=== PATIENT | male | born 1995 | race Caucasian/White ===

== ENCOUNTER 2019-11-27 17:05 | Emergency (ER) | payer OTHER ==
[2019-11-27 17:13] VITALS: BP 143/75
--- NOTE | 2019-11-27 18:00 | ED Physician Documentation ---
History of Present Illness - Stated complaint Stated Complaint: BLOOD IN STOOL - Chief complaint Chief Complaint: General - History obtained from History obtained from: Patient - History of Present Illness Timing: Other (24-year-old gentleman, active duty in the [place]. For the last 10 days has had intermittent bright red blood per rectum only with bowel movements. He has no bleeding without bowel movements. He has been slightly constipated. The blood is on the outside of the stool. He had never had this before.) Review of Systems Constitutional: denies: Fever, Chills Respiratory: denies: Dyspnea, Cough GI: denies: Abdominal Pain, Nausea, Vomiting PD PAST MEDICAL HISTORY - Present Medications Home Medications: Ambulatory Orders Medication Instructions Recorded Confirmed Docusate Sodium 250Mg Capsule 250 mg PO BID #60 capsule 11/27/19 [Colace 250Mg Capsule] HYDROcod/ACETAM 5/325 [[place] 5/325] 1 - 2 ea PO Q6H PRN 11/27/19 11/27/19 - Allergies Allergies/Adverse Reactions: Allergies Allergy/AdvReac Type Severity Reaction Status Date / Time No Known Drug Allergies Allergy Verified 11/27/19 17:13 PD ED PE NORMAL - Vitals Vital signs reviewed: Yes - General General: Alert and oriented X 3, No acute distress - Abdomen Abdomen: Soft, Non tender - Rectal Rectal: Other (On rectal examination at 6:00 there is a abrasion with sequela of recent active bleeding but no active bleeding.) - Back Back: No CVA TTP, No spinal TTP - Neuro Neuro: Alert and oriented X 3, Normal speech Results - Vitals Vitals: Vital Signs - 24 hr 11/27/19 17:11 Temperature 36.5 C Heart Rate 83 Respiratory 18 Rate Blood Pressure 143/75 H O2 Saturation 98 Oxygen O2 Source Room air - Labs Labs: Laboratory Tests 11/27/19 11/27/19 11/27/19 18:01 18:01 18:01 WBC 10.0 RBC 4.92 Hgb 15.0 Hct 41.9 L MCV 85.2 MCH 30.5 MCHC 35.8 RDW 11.9 L Plt Count 291 MPV 8.6 Neut # (Auto) 6.4 Lymph # (Auto) 2.9 Schley # (Auto) 0.5 Eos # (Auto) 0.2 Baso # (Auto) 0.0 Absolute Nucleated RBC 0.00 Nucleated RBC % 0.0 PT 13.4 H INR 1.2 Sodium 139 Potassium 3.6 Chloride 103 Carbon Dioxide 28 Anion Gap 8.0 BUN 18 Creatinine 0.9 Estimated GFR (MDRD) 106 Glucose 92 Calcium 9.5 Total Bilirubin 1.1 H AST 32 ALT 26 Alkaline Phosphatase 70 Total Protein 7.6 Albumin 4.7 Globulin 2.9 Albumin/Globulin Ratio 1.6 Lipase 28 PD MEDICAL DECISION MAKING - ED course ED course: This 24-year-old gentleman with upcoming Achilles tendon surgery who presents with intermittent bright red blood per rectum found to have a perirectal abrasion as the source. I do not see any reason he could not be anticoagulated perioperatively. Departure - Departure Disposition: 01 Home, Self Care Clinical Impression: Rectal bleeding Condition: Good Record reviewed to determine appropriate education?: Yes Instructions: ED Hematochezia Stable Prescriptions: Docusate Sodium 250Mg Capsule [Colace 250Mg Capsule] 250 mg PO BID #60 capsule Comments: You were seen today because you had some rectal bleeding, on examination this was due to a little abrasion near the rectum. This should not offer any problems if you need to be anticoagulated perioperatively. For your records your hemoglobin today was 15 which is fine, your blood counts are fine. Return as needed if worse or for new symptoms. [place] 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 Important to keep your stools very soft, take the stool softener and drink plenty of water. Return for new or worsening symptoms. I do not see any reason why you could not be anticoagulated perioperatively.
[2019-11-27 18:06] LABS: BASOPHILS % (AUTO) 0.2 %; EOSINOPHILS # (AUTO) 0.2 10^3/uL (0.0-0.7); EOSINOPHILS % (AUTO) 1.8 %; LYMPHOCYTES # (AUTO) 2.9 10^3/uL (1.5-3.5); LYMPHOCYTES % (AUTO) 29.1 %; MEAN CORPUSCULAR HEMOGLOBIN 30.5 pg (27.0-31.0); MEAN CORPUSCULAR HGB CONC 35.8 g/dL (32.0-36.0); MEAN CORPUSCULAR VOLUME 85.2 fL (80.0-94.0); MEAN PLATELET VOLUME 8.6 fL (7.4-11.4); MONOCYTES # (AUTO) 0.5 10^3/uL (0.0-1.0); MONOCYTES % (AUTO) 4.5 %; NEUTROPHILS # (AUTO) 6.4 10^3/uL (1.5-6.6); NEUTROPHILS % (AUTO) 64.1 %; PLT - PLATELET COUNT 291 10^3/uL (130-450); RED BLOOD COUNT 4.92 10^6/uL (4.70-6.10); RED CELL DISTRIBUTION WIDTH 11.9 % (12.0-15.0)
[2019-11-27 18:13] LABS: INR 1.2 (0.8-1.2); PT - PROTHROMBIN TIME 13.4 secs (9.9-12.6)
[2019-11-27 18:20] LABS: ALBUMIN 4.7 g/dL (3.2-5.5); ALBUMIN/GLOBULIN RATIO 1.6 (1.0-2.2); BILIRUBIN,TOTAL 1.1 mg/dL (0.2-1.0); CALCIUM 9.5 mg/dL (8.5-10.3); CREATININE 0.9 mg/dL (0.6-1.2); TOTAL PROTEIN 7.6 g/dL (6.7-8.2)
== END 2019-11-27 18:32 | disposition home or self-care (01) ==
LOC: ED 17:05
DX: S30.817A Abrasion of anus, initial encounter (principal); X58.XXXA Exposure to other specified factors, initial encounter
CPT/HCPCS: 36415; 80053; 83690; 85025; 85610; 99283; 99284

== ENCOUNTER 2019-11-29 08:52 | Outpatient (CLI) | payer OTHER ==
--- NOTE | 2019-12-01 21:43 | MRI Report ---
Reason: ACHILLES TENDON STRAIN Procedure Date: 11/29/2019 Accession Number: [id number] / [id number] Procedure: MRI - Ankle LT W/O CPT Code: Final Report FULL RESULT: EXAM: LEFT ANKLE/HINDFOOT MRI WITHOUT CONTRAST EXAM DATE: 11/29/2019 11:18 AM. CLINICAL HISTORY: ACHILLES TENDON STRAIN. COMPARISON: None. TECHNIQUE: Multiplanar, multisequence T1-weighted and fluid-sensitive sequences of the ankle/hindfoot without contrast. Other: None. FINDINGS: Bones: No fractures or subluxations. No marrow edema. No bone lesions. No osteoarthritis. Articular Cartilage: Unremarkable. Ligaments: The anterior and posterior tibiofibular, anterior and posterior talofibular, and calcaneofibular ligaments are intact. The deep and superficial deltoid and spring ligaments are intact. Anterior Tendons: The tibialis anterior, extensor hallucis longus, and extensor digitorum longus tendons are unremarkable. Medial Tendons: The tibialis posterior, flexor digitorum longus, and flexor hallucis longus tendons are unremarkable. Lateral Tendons: There is linear increased signal in the peroneus longus tendon distal to the peroneal tubercle of the calcaneus extending to the level of the plantar surface of the cuboid suspicious for a short segment longitudinal split tear. A bipartite os peroneum is present in the substance of the peroneus longus at the distal margin of this region. The peroneus brevis is intact. Achilles Tendon: There is complete disruption of the Achilles tendon. The plane of the tear resides approximately 6.2 cm proximal to the insertion of the distalmost fibers on the calcaneus and there is approximately 9 mm of diastasis of the torn ends of the tendon. Musculature: No edema or fatty atrophy. Other: No effusions. The contents of the sinus tarsi and tarsal tunnel are unremarkable. No plantar fasciitis. Moderate generalized circumferential subcutaneous edema is present about the lower leg, ankle, and foot, presumably related to the Achilles tear. IMPRESSION: 1. Complete Achilles tear. 2. Probable longitudinal split tear of a short segment of the peroneus longus tendon between the peroneal tubercle and the plantar surface of the cuboid. A bipartite os peroneum is present in the tendon at the distal margin of this region. RADIA
== END 2019-11-29 08:53 | disposition home or self-care (01) ==
LOC: DI 08:52
PROVIDERS: ATTEND Family Medicine
DX: S86.012A Strain of left Achilles tendon, initial encounter (principal)

== ENCOUNTER 2019-11-30 07:01 | Day surgery (SDC) | payer OTHER ==
[~2019-11-30 07:01] MED LIST: CEFAZOLIN SODIUM IN 0.9 % NACL 2 GM/100 ML BAG IV ONE
[2019-11-30] MEDS ORDERED: LIDOCAINE-MPF 2% 5 ML VIAL IM ONE (07:02)
[2019-11-30] MEDS ORDERED: MIDAZOLAM 2 MG/2 ML VIAL IVP ONE (07:02)
[2019-11-30] MEDS ORDERED: fentaNYL 100 MCG/2 ML VIAL IVP ONE (07:02)
[2019-11-30] MEDS ORDERED: ROCURONIUM 50 MG/5 ML VIAL IVP ONE (07:02)
[2019-11-30] MEDS ORDERED: DEXAMETHASONE 4 MG/ML VIAL IVP ONE (07:02)
[2019-11-30] MEDS ORDERED: PROPOFOL 200 MG/20 ML VIAL IVP ONE (07:02)
[2019-11-30] MEDS ORDERED: LACTATED RINGERS 1,000 ML IV ONE ×2 (07:21→10:32)
--- NOTE | 2019-11-30 07:37 | ANESTHESIA ---
Pre-Anesthesia VS, & Labs - Diagnosis Left achilles tendon rupture - Procedure Left achilles tendon repair Height 6 ft Weight (kg) 93.89 kg Body Mass Index 28.0 - NPO >8 hours Home Medications and Allergies Home Medications: Ambulatory Orders Enoxaparin [Lovenox] 40 mg SUBQ Q24H 11/28/19 HYDROcod/ACETAM 5/325 [[place] 5/325] 1 - 2 ea PO Q6H PRN 11/27/19 Enoxaparin [Lovenox] 40 mg SUBQ Q24H 11/28/19 Allergies/Adverse Reactions: Allergies Allergy/AdvReac Type Severity Reaction Status Date / Time No Known Drug Allergies Allergy Verified 11/27/19 17:13 Anes History & Medical History - Anesthetic History Family history of Anesthesia Complications: Denies Family history of Malignant Hyperthermia: Denies - Medical History Cardiovascular: reports: None Pulmonary: reports: None Gastrointestinal: reports: Other (recent rectal bleeding) Urinary: reports: None Neuro: reports: None Musculoskeletal: reports: Other Endocrine/Autoimmune: reports: None Blood Disorders: reports: None Skin: reports: None Smoking Status: Never smoker Psychosocial: reports: Alcohol (2 beers 2x per week) Exam General: Alert, Oriented x3, Cooperative, No acute distress Dental: WNL Mouth Openin Fingerbreadth Neck Mobility: Normal Mallampati classification: II Thyromental Distance: greater than 6 cm Respiratory: Lungs clear, Normal breath sounds, No respiratory distress, No accessory muscle use Cardiovascular: Regular rate, Normal S1, Normal S2, No murmurs Cognitive Status: Within normal limits Plan Anesthesia Type: General, Sciatic Nerve Block (Left) Regional Block: Per Surgeon's request for Post Op pain control Consent for Procedure(s) Verified and Reviewed: Yes Code Status: Attempt Resuscitation ASA classification: 1-Healthy patient Is this case an emergency?: No
[2019-11-30] MEDS ORDERED: BUPIVACAINE 0.25% PF 30 ML VIAL ONE (07:43)
[2019-11-30] MEDS ORDERED: BUPIVACAINE 0.25% PF 30 ML VIAL SUBQ ONE (08:29)
[2019-11-30] MEDS ORDERED: ONDANSETRON 4 MG/2 ML VIAL IVP PRN (10:22)
[2019-11-30] MEDS ORDERED: oxyCODONE 5 MG TABLET PO PRN (10:22)
--- NOTE | 2019-11-30 10:35 | OPERATIVE REPORT ---
Operative Report - General Procedure Date: 11/30/19 - Procedure Note Estimated Blood Loss (mL): 5 - Other Other Information/Narrative: Date of Procedure: 30 November 2019 Planned Procedure: Left open Achilles tendon repair Pre-op diagnosis: Left Achilles tendon rupture Procedure performed: Left open Achilles tendon Post-op diagnosis: Left Achilles tendon Primary Surgeon: ART MCCAIN Secondary Surgeon: Nila Anesthesia: General, ET tube, postoperative block EBL: 5 ml Tourniquet: 88-minute minutes, left thigh at 250 mmHg Indications: 24-year-old male sustained injury to the left ankle while playing sports, he planted his leg and felt a pop as if somebody kicked him in the back of the leg and had difficulty bearing weight. He was seen in the emergency department where a left Achilles tendon rupture was diagnosed, he was placed in an appropriate posterior splint in equinus and referred to orthopedics. His clinical exam was consistent with an Achilles tendon rupture, he had no movement of the foot with a Wayne squeeze test, and had increased resting dorsiflexion of the left foot when prone and knees flexed to 90 degrees. There was a palpable gap that was tender to palpation approximately 5 cm above the calcaneal tuberosity. We had a long discussion in clinic about both operative and nonoperative management of these injuries, and the risks and benefits of each: the patient elected for operative treatment. We discussed risks to include pain, bleeding, infection, rerupture wound healing problems, prominent sutures, stiffness, need for extensive rehabilitation , damage to nearby structures, lack of symptom relief, need for further surgery, DVT, PE, stroke, and . Written consent was obtained. Findings at surgery: The Achilles tendon was completely torn, approximately 4 cm above its insertion. There was shredding of the tendon at the tear site, however there was also some consolidation and hematoma. The tendon was debrided and mobilized, and secured using a Krakw gift box type stitch. Procedure in Detail: The patient was met in the pre-operative hold area on the day of the procedure. The operative extremity was signed and questions were answered. The patient was brought to the operating room and a general anesthetic was administered. The patient was then positioned prone on bolsters, ensuring free excursion of the abdomen, bony prominences were padded. A nonsterile tourniquet was placed high on the left thigh. Standard prepping and draping was performed. A time out confirmed patient identification, laterality, procedure, allergies, and antibiotics. The course of the Achilles tendon was marked out on the posterior leg and 7 cm was measured proximal from the tip of the fibula to illustrate the point at which the sural nerve likely crossed over the lateral border of the tendon. An initial 6 cm longitudinal incision, medial to midline, was made. Full-thickness flaps were developed to the level of the peritenon and the peritenon was incised in the midline, exposing the tendon. At the site of the rupture, the peritenon was torn, and these holes were incorporated into the peritenon incision. The proximal tendon end was grasped with an Allis forceps and then debrided of hematoma, and degenerative tissue. I circumferentially dissected around the proximal tendon using my finger to ensure appropriate excursion, without any undue adhesions. Then using a #2 FiberWire the proximal tendon end was prepared using a modified Krakw gift box technique. Attention was then turned distally. The distal tendon was debrided, grasped with an Allis and mobilized, and prep ared in a similar fashion to the proximal tendon. Prior to repair, the deep surface of the peritenon was incised to allow improved excursion and repair. A free Prateek needle was used to pass the suture ends into the opposing tendon fragment in gift box fashion. The foot was plantar flexed and the tendon ends were approximated. The sutures were tied, and placing the leg into 90 degrees of flexion demonstrated good maintenance of tendon continuity without gapping. The foot was able to be plantarflexed to neutral without gapping. The wound was irrigated, and then a running epitendinous suture of 0 Vicryl was used. The wound was again irrigated and the peritenon was closed using a running 2-0 Vicryl. The wound was again irrigated and the subcutaneous tissue was closed with interrupted 2-0 Vicryl followed by horizontal and vertical mattress sutures using 3-0 nylon. The whit-incisional soft tissues were injected with 20 cc of quarter percent Marcaine plain. Xeroform and sterile dressings were placed followed julianne Heard, followed by a plaster L and U-splint in approximately 20 degrees of equinus. Anesthesia was reversed the patient was transferred to the PACU in stable condition. Nonweightbearing while in the splint The splint will stay on until follow-up Restart lovenox 40mg QD on POD#1 Follow-up in 2 weeks for planned splint take down and suture removal.
[2019-11-30] MEDS: HYDROmorphone 1 MG/ML CARPUJECT ONE ×3 (10:43→10:55)
[2019-11-30] MEDS: fentaNYL 100 MCG/2 ML VIAL ONE ×4 (10:58→11:09)
[2019-11-30] MEDS ORDERED: HYDROmorphone 0.5 MG/0.5 ML SYRINGE ONE (11:11)
[2019-11-30] MEDS ORDERED: ACETAMINOPHEN 1,000 MG/100 ML 100 ML IV ONE (11:30)
[2019-11-30] MEDS ORDERED: oxyCODONE 5 MG TABLET ONE (11:37)
[2019-11-30 12:53] VITALS: BP 120/72
== END 2019-11-30 07:02 | disposition home or self-care (01) ==
LOC: SDS 07:01 → EDUNIT# 11:30
PROVIDERS: ATTEND Orthopaedic Surgery
PROC: 0LQP0ZZ Repair Left Lower Leg Tendon, Open Approach (ICD-10-PCS; principal; 2019-11-30 08:00)
DX: S86.012A Strain of left Achilles tendon, initial encounter (principal); X50.0XXA Overexertion from strenuous movement or load, initial encounter; Y93.67 Activity, basketball; Y99.8 Other external cause status; Z87.19 Personal history of other diseases of the digestive system